=== PATIENT | female | born 1950 | race Caucasian/White ===

== ENCOUNTER 2017-07-08 19:32 | Emergency (ER) | payer MEDICARE, BC ==
[~2017-07-08] VITALS: Ht 162.6 cm; Wt 81.8 kg
[2017-07-08 19:35] VITALS: TEMP 98.9
[2017-07-08] MEDS ORDERED: PREMARIN 0.9MG0.9 MG PO (19:40)
[2017-07-08] MEDS ORDERED: FLONASE NASAL S16 GM NS (19:40)
[2017-07-08] MEDS ORDERED: MUCINEX 60600 MG/TA1 PO (19:41)
[2017-07-08] MEDS ORDERED: BENICAR HCT 12.1 TAB PO (19:41)
[2017-07-08] MEDS ORDERED: COREG 25MG25 MG/TAB PO (19:41)
[2017-07-08] MEDS ORDERED: ASPIRIN 32325 MG/TAB PO (19:41)
[2017-07-08] MEDS ORDERED: ZANTAC 150MG T150 MG PO (19:41)
[2017-07-08] MEDS ORDERED: LEVOXYL0.1 MG PO (19:41)
[2017-07-08 21:34] VITALS: BP 187/77; PULSE 70
== END 2017-07-08 21:58 | disposition home or self-care (01) ==
LOC: COL.ER 19:32
DX: S80.01XA Contusion of right knee, initial encounter (principal); S00.83XA Contusion of other part of head, initial encounter; I10 Essential (primary) hypertension; Z79.82 Long term (current) use of aspirin; W01.198A Fall on same level from slipping, tripping and stumbling with subsequent striking against other object, initial encounter; Y92.410 Unspecified street and highway as the place of occurrence of the external cause